=== PATIENT | female | born 1995 | race African-American/Black ===

== ENCOUNTER 2020-10-03 12:34 | Emergency (ER) | payer OTHER ==
[2020-10-03 12:45] VITALS: BP 134/70
[2020-10-03] MEDS ORDERED: PROPARACAINE 0.5% OPHTH DROPS 15 ML EACHEYE STA (12:52)
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
== END 2020-10-03 13:31 | disposition home or self-care (01) ==
LOC: ED 12:34
DX: S05.02XA Injury of conjunctiva and corneal abrasion without foreign body, left eye, initial encounter (principal); W20.8XXA Other cause of strike by thrown, projected or falling object, initial encounter
CPT/HCPCS: 99282; 99284; J3490